=== PATIENT | male | born 1945 | race Caucasian/White ===

== ENCOUNTER 2020-03-24 10:16 | Observation (INO) | payer MEDICARE, BC ==
[~2020-03-24] VITALS: Ht 175.3 cm; Wt 121.5 kg
--- NOTE | 2020-03-24 10:33 | NUR ---
PT BIB EMS. PT CALLED 911 BECAUSE THERE WAS "PISS ANTS IN HIS HOTEL ROOM AND HE CANT LIVE LIKE THIS". BESIDES THAT, HIS MEDICAL COMPLAINT WAS THAT HE HAS CHRONIC PAIN IN HIS ARMS AND LEG. EMS REPORTED A BS OF 501. PT REFUSED IV IN THE FIELD. [facility] RESTING [facility]QU[facility].
[2020-03-24] MEDS ORDERED: MECLIZINE CHEWABLE 25 MG TAB ONE (10:39)
[2020-03-24] MEDS ORDERED: MECLIZINE CHEWABLE 25 MG TAB PO ONE (11:00)
[2020-03-24 11:09] LABS: BASOPHILS # (AUTO) 0.02 x10^3/uL (0-0.1); BASOPHILS % (AUTO) 0 % (0-1); EOSINOPHILS # (AUTO) 0.24 x10^3/uL (0-0.4); EOSINOPHILS % (AUTO) 4 % (1-7); LYMPHOCYTES # (AUTO) 1.91 x10^3/uL (1-3.4); LYMPHOCYTES % (AUTO) 33 % (22-44); MD NO; MEAN CORPUSCULAR HEMOGLOBIN 33.2 pg (27.5-34.5); MEAN CORPUSCULAR HGB CONC 33.6 g/dL (33.2-36.2); MEAN CORPUSCULAR VOLUME 98.9 fL (81-97); MEAN PLATELET VOLUME 9.6 fL (7.4-10.4); MONOCYTES # (AUTO) 0.48 x10^3/uL (0.2-0.8); MONOCYTES % (AUTO) 8 % (2-9); NEUTROPHILS % (AUTO) 55 % (42-75); PLATELET COUNT 165 x10^3/uL (130-400); RED CELL DISTRIBUTION WIDTH 13.9 % (9.4-14.8)
--- NOTE | 2020-03-24 11:12 | NUR ---
PT TO CT AT THIS TIME
[2020-03-24 11:21] LABS: ALANINE AMINOTRANSFERASE 17 U/L (12-78); ANION GAP 10 mmol/L (5-15); CALCIUM 8.7 mg/dL (8.5-10.1); CHLORIDE 104 mmol/L (98-107); CREATININE 1.15 mg/dL (0.7-1.3)
[2020-03-24 11:25] LABS: ALKALINE PHOSPHATASE 99 U/L (45-117); BILIRUBIN,TOTAL 0.8 mg/dL (0.2-1.0); TOTAL PROTEIN 6.4 g/dL (6.4-8.2); TROPONIN I 0.046 ng/mL (0.000-0.045)
[2020-03-24 11:57] LABS: PH, VENOUS 7.397 pH (7.320-7.420)
[2020-03-24] MEDS ORDERED: SODIUM CHLORIDE FLUSH 10ML SYR IVF ONE (12:00)
[2020-03-24] MEDS ORDERED: SODIUM CHLORIDE 0.9% 1,000ML IVBOLUS ONE (12:00)
[2020-03-24] MEDS ORDERED: ASPIRIN 81 MG TABLET CHEW PO ONE (12:00)
[2020-03-24] MEDS ORDERED: ASPIRIN 81 MG TABLET CHEW ONE (12:03)
--- NOTE | 2020-03-24 12:36 | NUR ---
ADMITTING PROVIDER IN WITH PT AT THIS TIME. IV FLUIDS INFUSING
[2020-03-24 12:44] LABS: ACETONE, SERUM Trace (Negative)
[2020-03-24] MEDS ORDERED: KETOROLAC 30 MG/1 ML IV PRN (13:00)
[2020-03-24] MEDS ORDERED: GABAPENTIN 300 MG CAPSULE PO PRN (13:00)
[2020-03-24] MEDS ORDERED: TRAZODONE 50MG TABLET PO PRN (13:00)
[2020-03-24] MEDS ORDERED: hydrALAzine 20 MG/ML, 1ML IVPush PRN (13:00)
[2020-03-24] MEDS ORDERED: ENOXAPARIN 40 MG/0.4 ML SQ SCH (13:00)
[2020-03-24] MEDS ORDERED: ONDANSETRON ODT 4 MG PO PRN (13:00)
[2020-03-24] MEDS ORDERED: ACETAMINOPHEN 325 MG TABLET PO PRN (13:00)
[2020-03-24] MEDS ORDERED: OXYcodone/APAP 5/325MG TABLET PO PRN (13:00)
[2020-03-24] MEDS ORDERED: CYCLOBENZAPRINE 10 MG TABLET PO PRN (13:00)
[2020-03-24] MEDS ORDERED: LABETALOL 5MG/ML, 20ML IVPush PRN (13:00)
[2020-03-24] MEDS ORDERED: BISACODYL 10 MG SUPP PR PRN (13:00)
[2020-03-24] MEDS ORDERED: ONDANSETRON 2MG/ML, 2ML IVPush PRN (13:00)
[2020-03-24 13:10] VITALS: BP 160/77
[2020-03-24] MEDS ORDERED: INSULIN LISPRO 100 UNIT/ML, 3ML VIAL SQ-INSULIN ONE (14:00)
[2020-03-24 17:22] VITALS: BP 151/84
[2020-03-24] MEDS: GABAPENTIN 300 MG CAPSULE PO SCH ×2 (17:22→21:54)
[2020-03-24] MEDS: METOPROLOL TARTRATE 25 MG TAB PO SCH (17:22)
[2020-03-24] MEDS: INSULIN LISPRO 100 UNITS/ML, PEN SQ-INSULIN SCH ×2 (17:34→22:07)
[2020-03-24 19:21] LABS: TROPONIN I 0.045 ng/mL (0.000-0.045)
[2020-03-24 19:55] VITALS: BP 95/60
[2020-03-24] MEDS ORDERED: INSULIN GLARGINE 100 UNITS/ML, PEN SQ-INSULIN SCH (21:00)
[2020-03-24 21:18] LABS: ESTIMATED AVERAGE GLUCOSE 355 mg/dL (0-126)
[2020-03-25 02:47] VITALS: BP 117/64
[2020-03-25] MEDS: METOPROLOL TARTRATE 25 MG TAB PO SCH (05:36)
[2020-03-25] MEDS ORDERED: ASPIRIN 325 MG TABLET PO SCH (06:00)
[2020-03-25 06:15] LABS: ANION GAP 8 mmol/L (5-15); CALCIUM 8.5 mg/dL (8.5-10.1); CHLORIDE 108 mmol/L (98-107)
[2020-03-25 06:19] LABS: CHOL/HDL RATIO 6.7; CHOLESTEROL, TOTAL 242 mg/dL (140-239); CREATININE 1.08 mg/dL (0.7-1.3); HDL CHOL % 15 % (26-37); HDL CHOLESTEROL (DIRECT) 36 mg/dL (40-60); LDL CHOLESTEROL,CALCULATED 162 mg/dL (54-169); LDL/HDL RATIO 4.5 (0.5-3.0); TRIGLYCERIDES 220 mg/dL (50-200); VLDL CHOLESTEROL 44 mg/dL (0-25)
[2020-03-25 08:05] VITALS: BP 114/68
[2020-03-25] MEDS: INSULIN LISPRO 100 UNITS/ML, PEN SQ-INSULIN SCH ×2 (08:32→11:00)
[2020-03-25] MEDS: GABAPENTIN 300 MG CAPSULE PO SCH (08:33)
[2020-03-25] MEDS ORDERED: LISINOPRIL 10 MG TABLET PO SCH (09:00)
[2020-03-25] MEDS ORDERED: SENNA/DOCUSATE TABLET PO SCH (09:00)
[2020-03-25] MEDS ORDERED: REGADENOSON 0.4 MG/5 ML SYRINGE ONE (10:43)
== END 2020-03-25 12:46 | disposition left against medical advice (07) ==
LOC: ED 10:50 → EDIP 12:08 → INTOOBSV 12:08 → 5SO 13:29
PROVIDERS: ADMIT Internal Medicine; ATTEND Family Medicine
DX: R07.89 Other chest pain (principal); J96.01 Acute respiratory failure with hypoxia; I10 Essential (primary) hypertension; E11.65 Type 2 diabetes mellitus with hyperglycemia; M51.37 Other intervertebral disc degeneration, lumbosacral region; M51.36 Other intervertebral disc degeneration, lumbar region; R79.89 Other specified abnormal findings of blood chemistry; G89.4 Chronic pain syndrome; R42 Dizziness and giddiness; I25.2 Old myocardial infarction; I08.3 Combined rheumatic disorders of mitral, aortic and tricuspid valves; Z85.46 Personal history of malignant neoplasm of prostate; Z91.19 Patient's noncompliance with other medical treatment and regimen; Z68.41 Body mass index [BMI] 40.0-44.9, adult; Z96.651 Presence of right artificial knee joint; Z86.73 Personal history of transient ischemic attack (TIA), and cerebral infarction without residual deficits
CPT/HCPCS: 36415; 70450; 72110; 73502; 78452; 80048; 80053; 80061; 82010; 82803; 82962; 83036; 83735; 83880; 84100; 84153; 84484; 85025; 93005; 93017; 96372; 96374; 99285; A9502; C8929; C9898; G0378; J1650; J1815; J1817; J1885; J2785; J7030; Q9957

== ENCOUNTER 2020-04-01 01:19 | Emergency (ER) | payer BC, MEDICARE ==
[~2020-04-01] VITALS: Ht 175.3 cm; Wt 125.0 kg
--- NOTE | 2020-04-01 01:31 | NUR ---
BIB [facility] FROM HOME FOR LEFT SIDED CHEST PAIN X1 HOUR, WOKE HIM UP FROM SLEEP. CONSTANT, NONRADIATING, DENIES ANY N/V, SOB. PLACED CARDIAC AND VITALS MONITORS.
[2020-04-01 02:07] LABS: BASOPHILS # (AUTO) 0.03 x10^3/uL (0-0.1); BASOPHILS % (AUTO) 1 % (0-1); EOSINOPHILS # (AUTO) 0.37 x10^3/uL (0-0.4); EOSINOPHILS % (AUTO) 6 % (1-7); LYMPHOCYTES # (AUTO) 1.56 x10^3/uL (1-3.4); LYMPHOCYTES % (AUTO) 25 % (22-44); MD NO; MEAN CORPUSCULAR HEMOGLOBIN 32.7 pg (27.5-34.5); MEAN CORPUSCULAR VOLUME 99.1 fL (81-97); MEAN PLATELET VOLUME 9.4 fL (7.4-10.4); MONOCYTES # (AUTO) 0.54 x10^3/uL (0.2-0.8); MONOCYTES % (AUTO) 9 % (2-9); NEUTROPHILS # (AUTO) 3.64 x10^3/uL (1.8-6.8); NEUTROPHILS % (AUTO) 59 % (42-75); PLATELET COUNT 154 x10^3/uL (130-400); RED BLOOD COUNT 4.74 x10^6/uL (4.38-5.82)
[2020-04-01 02:12] LABS: ALANINE AMINOTRANSFERASE 18 U/L (12-78); ALBUMIN 2.9 g/dL (3.4-5.0); ANION GAP 5 mmol/L (5-15); CALCIUM 8.5 mg/dL (8.5-10.1); CHLORIDE 109 mmol/L (98-107); CREATININE 1.14 mg/dL (0.7-1.3)
[2020-04-01 02:13] LABS: INTERNATIONAL NORMALIZED RATIO 0.94 (0.93-1.1)
[2020-04-01 02:17] LABS: ALKALINE PHOSPHATASE 78 U/L (45-117); BILIRUBIN,TOTAL 0.5 mg/dL (0.2-1.0); TOTAL PROTEIN 5.9 g/dL (6.4-8.2); TROPONIN I 0.059 ng/mL (0.000-0.045)
[2020-04-01 04:13] VITALS: BP 126/50
--- NOTE | 2020-04-01 04:21 | NUR ---
PT SLEEPING NADN. SAFETY FALL PRECAUTIONS IN PLACE. CALL LIGHT WITHIN REACH.
--- NOTE | 2020-04-01 04:45 | NUR ---
ASSISTED PT WITH URINAL.
[2020-04-01 05:03] LABS: TROPONIN I 0.058 ng/mL (0.000-0.045)
== END 2020-04-01 05:25 | disposition home or self-care (01) ==
LOC: ED 01:54
DX: R07.89 Other chest pain (principal); E11.65 Type 2 diabetes mellitus with hyperglycemia; I49.3 Ventricular premature depolarization; I25.2 Old myocardial infarction; Z86.73 Personal history of transient ischemic attack (TIA), and cerebral infarction without residual deficits; Z95.9 Presence of cardiac and vascular implant and graft, unspecified; Z96.651 Presence of right artificial knee joint; Z87.891 Personal history of nicotine dependence
CPT/HCPCS: 36415; 71045; 80053; 84484; 85025; 85610; 85730; 93005; 99285